=== PATIENT | female | born 1975 | race American Indian/Alaskan Native ===

== ENCOUNTER 2017-06-14 15:03 | Emergency (ER) | payer MEDICAID ==
[2017-06-14 17:09] VITALS: BP 133/89
[2017-06-14] MEDS ORDERED: TYLENOL PO ONE (17:11)
[2017-06-14] MEDS ORDERED: TYLENOL ONE (17:12)
== END 2017-06-14 19:48 ==
LOC: ED 15:03
DX: R11.2 Nausea with vomiting, unspecified (principal); Z53.21 Procedure and treatment not carried out due to patient leaving prior to being seen by health care provider

== ENCOUNTER 2017-10-09 23:03 | Emergency (ER) | payer MEDICAID ==
[2017-10-09 23:13] VITALS: BP 135/77
[2017-10-10 00:03] LABS: Basophils # (Auto) 0.1 K/mm3 (0.0-0.1); Basophils % (Auto) 1.1 % (0.0-1.8); Eosinophils # (Auto) 0.1 K/mm3 (0.0-0.4); Eosinophils % (Auto) 1.7 % (0.0-4.3); Hematocrit 39.3 % (30.3-42.9); Hemoglobin 13.7 gm/dl (10.1-14.3); Lymphocytes # (Auto) 2.4 K/mm3 (1.2-5.4); Lymphocytes % (Auto) 47.1 % (13.4-35.0); Mean Corpuscular HGB Conc 35 % (30-34); Mean Corpuscular Hemoglobin 32 pg (28-32); Mean Corpuscular Volume 92 fl (79-97); Monocytes # (Auto) 0.3 K/mm3 (0.0-0.8); Monocytes % (Auto) 5.8 % (0.0-7.3); Platelet Count 251 K/mm3 (140-440); Red Blood Count 4.28 M/mm3 (3.65-5.03)
[2017-10-10 00:16] LABS: Alanine Aminotransferase 10 units/L (7-56); Albumin 4.8 g/dL (3.9-5); BUN/Creatinine Ratio 13; Blood Urea Nitrogen 8 mg/dL (7-17); Calcium 9.4 mg/dL (8.4-10.2); Hemolysis Index 3
[2017-10-10 03:11] LABS: Bacteria,Urine 1+ /HPF (Negative); Bilirubin,Urine NEG (Negative); Blood,Urine MOD (Negative); Color,Urine Yellow (Yellow); Mucus,Urine FEW /HPF; Protein,Urine <15 mg/dL mg/dL (Negative)
--- NOTE | 2017-10-10 03:51 | Emergency Department Report ---
ED Female HPI - General Chief complaint: Vaginal Bleeding Stated complaint: VAGINAL BLEEDING Time Seen by Provider: 10/10/17 03:18 Source: patient Mode of arrival: Ambulatory Limitations: No Limitations - History of Present Illness Initial comments: 40 year old female with a past medical history of sickle cell trait, anemia presents to the hospital complaining of irregular menstrual bleeding for several months. Currently patient is using 4 pads per day. He complains of a stabbing pain to her suprapubic area feels like the uterus is falling out. She was seen at [facility] ER September 13 for the same and had ultrasound performed. She was diagnosed with left ovarian cyst. She has followed for her [employer]PUTER [employer] doctor and is scheduled for repeat outpatient ultrasound. This has been postponed until patient's bleeding has stopped because she was told the center that vag bleeding will interfere with the study. Patient is not currently on any control. She complains of some mild lightheadedness. She is frustrated because she cannot be sexually intimate with her because of the persistent bleeding. She is also having pain that is interfering with her work. She is prescribed hydrocodone and Motrin 800 mg. She cannot take hydrocodone while she is working so she's been doubling up on her Motrin 800 mg. She is currently taking multivitamins with iron. Denies dysuria. Patient has also recently completed a course of clindamycin and Macrobid prescribed during her recent visits to the hospital and clinic - Related Data Previous Rx's Medication Instructions Recorded Last Taken Type Ibuprofen [Motrin] 400 mg PO Q8H PRN #60 tablet 05/16/15 Unknown Rx Ondansetron [Zofran Odt] 4 mg PO Q6H PRN #14 tab.rapdis 05/16/15 Unknown Rx Sulfamethoxazole/Trimethoprim 1 each PO BID #14 tablet 05/16/15 Unknown Rx [Bactrim DS TAB] traMADol [Ultram] 50 mg PO Q6HR PRN #14 tablet 05/16/15 Unknown Rx Allergies Allergy/AdvReac Type Severity Reaction Status Date / Time No Known Allergies Allergy Verified 01/17/15 18:49 ED Review of Systems ROS: Stated complaint: VAGINAL BLEEDING Other details as noted in HPI Comment: All other systems reviewed and negative ED Past Medical Hx - Past Medical History Previous Medical History?: Yes Additional medical history: sickle cell trait, anemia - Surgical History Past Surgical History?: No - Social History Smoking Status: Current Every Day Smoker Substance Use Type: None - Medications Home Medications: Home Medications Medication Instructions Recorded Confirmed Last Taken Type Ibuprofen [Motrin] 400 mg PO Q8H PRN #60 tablet 05/16/15 Unknown Rx Ondansetron [Zofran Odt] 4 mg PO Q6H PRN #14 tab.rapdis 05/16/15 Unknown Rx Sulfamethoxazole/Trimethoprim 1 each PO BID #14 tablet 05/16/15 Unknown Rx [Bactrim DS TAB] traMADol [Ultram] 50 mg PO Q6HR PRN #14 tablet 05/16/15 Unknown Rx ED Physical Exam - General Limitations: No Limitations - Other Other exam information: General: No limitations, patient is alert in no acute distress Head exam: Atraumatic, normocephalic Eyes exam: Normal appearance, pupils equal reactive to light, extraocular movements intact ENT: Moist mucous membrane, normal oropharynx Neck exam: Normal inspection, full range of motion, no meningismus nontender Respiratory exam: Clear to auscultation bilateral, no wheezes, rales, crackles Cardiovascular: Normal rate and rhythm, normal heart sounds Abdomen: Soft, nondistended, and nontender, with normal bowel sounds, no rebound, or guarding Extremity: Full range of motion normal inspection no deformity Back: Normal Inspection, full range of motion, no tenderness Neurologic: Alert, oriented x3, cranial nerves intact, no motor or sensory deficit Psychiatric: normal affect, normal mood Skin: Warm, dry, intact ED Course Vital Signs 10/09/17 23:05 Temperature 98.6 F Pulse Rate 66 Respiratory 18 Rate Blood Pressure 135/77 O2 Sat by Pulse 100 Oximetry ED Medical Decision Making - Lab Data Result diagrams: 10/09/17 23:36 10/09/17 23:36 Lab Results 10/09/17 10/09/17 10/09/17 Range/Units 23:36 23:36 23:36 WBC 5.1 (4.5-11.0) K/mm3 RBC 4.28 (3.65-5.03) M/mm3 Hgb 13.7 (10.1-14.3) gm/dl Hct 39.3 (30.3-42.9) % MCV 92 (79-97) fl MCH 32 (28-32) pg MCHC 35 H (30-34) % RDW 13.0 L (13.2-15.2) % Plt Count 251 (140-440) K/mm3 Lymph % (Auto) 47.1 H (13.4-35.0) % [place] % (Auto) 5.8 (0.0-7.3) % Eos % (Auto) 1.7 (0.0-4.3) % Baso % (Auto) 1.1 (0.0-1.8) % Lymph # 2.4 (1.2-5.4) K/mm3 [place] # 0.3 (0.0-0.8) K/mm3 Eos # 0.1 (0.0-0.4) K/mm3 Baso # 0.1 (0.0-0.1) K/mm3 Seg Neutrophils % 44.3 (40.0-70.0) % Seg Neutrophils # 2.3 (1.8-7.7) K/mm3 Sodium 141 (137-145) mmol/L Potassium 3.6 (3.6-5.0) mmol/L Chloride 100.3 (98-107) mmol/L Carbon Dioxide 28 (22-30) mmol/L Anion Gap 16 mmol/L BUN 8 (7-17) mg/dL Creatinine 0.6 L (0.7-1.2) mg/dL Estimated GFR > 60 ml/min BUN/Creatinine Ratio 13 % Glucose 84 (65-100) mg/dL Calcium 9.4 (8.4-10.2) mg/dL Total Bilirubin 0.50 (0.1-1.2) mg/dL AST 18 (5-40) units/L ALT 10 (7-56) units/L Alkaline Phosphatase 69 (35-129) units/L Total Protein 8.0 (6.3-8.2) g/dL Albumin 4.8 (3.9-5) g/dL Albumin/Globulin Ratio 1.5 % HCG, Quant < 2 (0-4) mIU/mL Urine Color (Yellow) Urine Turbidity (Clear) Urine pH (5.0-7.0) Ur Specific [place] (1.003-1.030) Urine Protein (Negative) mg/dL Urine Glucose (UA) (Negative) mg/dL Urine Ketones (Negative) mg/dL Urine Blood (Negative) Urine Nitrite (Negative) Urine Bilirubin (Negative) Urine Urobilinogen (<2.0) mg/dL Ur Leukocyte Esterase (Negative) Urine WBC (Auto) (0.0-6.0) /HPF Urine RBC (Auto) (0.0-6.0) /HPF U Epithel Cells (Auto) (0-13.0) /HPF Urine Bacteria (Auto) (Negative) /HPF Urine Mucus /HPF Blood Type Antibody Screen 10/09/17 10/10/17 Range/Units 23:36 02:36 WBC (4.5-11.0) K/mm3 RBC (3.65-5.03) M/mm3 Hgb (10.1-14.3) gm/dl Hct (30.3-42.9) % MCV (79-97) fl MCH (28-32) pg MCHC (30-34) % RDW (13.2-15.2) % Plt Count (140-440) K/mm3 Lymph % (Auto) (13.4-35.0) % [place] % (Auto) (0.0-7.3) % Eos % (Auto) (0.0-4.3) % Baso % (Auto) (0.0-1.8) % Lymph # (1.2-5.4) K/mm3 [place] # (0.0-0.8) K/mm3 Eos # (0.0-0.4) K/mm3 Baso # (0.0-0.1) K/mm3 Seg Neutrophils % (40.0-70.0) % Seg Neutrophils # (1.8-7.7) K/mm3 Sodium (137-145) mmol/L Potassium (3.6-5.0) mmol/L Chloride (98-107) mmol/L Carbon Dioxide (22-30) mmol/L Anion Gap mmol/L BUN (7-17) mg/dL Creatinine (0.7-1.2) mg/dL Estimated GFR ml/min BUN/Creatinine Ratio % Glucose (65-100) mg/dL Calcium (8.4-10.2) mg/dL Total Bilirubin (0.1-1.2) mg/dL AST (5-40) units/L ALT (7-56) units/L Alkaline Phosphatase (35-129) units/L Total Protein (6.3-8.2) g/dL Albumin (3.9-5) g/dL Albumin/Globulin Ratio % HCG, Quant (0-4) mIU/mL Urine Color Yellow (Yellow) Urine Turbidity Clear (Clear) Urine pH 5.0 (5.0-7.0) Ur Specific [place] 1.019 (1.003-1.030) Urine Protein <15 mg/dl (Negative) mg/dL Urine Glucose (UA) Neg (Negative) mg/dL Urine Ketones Neg (Negative) mg/dL Urine Blood Mod (Negative) Urine Nitrite Neg (Negative) Urine Bilirubin Neg (Negative) Urine Urobilinogen 2.0 (<2.0) mg/dL Ur Leukocyte Esterase Mod (Negative) Urine WBC (Auto) 13.0 H (0.0-6.0) /HPF Urine RBC (Auto) 18.0 (0.0-6.0) /HPF U Epithel Cells (Auto) 2.0 (0-13.0) /HPF Urine Bacteria (Auto) 1+ (Negative) /HPF Urine Mucus Few /HPF Blood Type O POSITIVE Antibody Screen Negative - Medical Decision Making Patient has ongoing uterine bleeding abnormalities. Currently using 4 pads per day. H&H vital signs stable. Patient has a [employer]PUTER [employer]TER doctor in outpatient plan. She is reassured to continue with her follow-up And continue her current medications. She was advised by her [employer]PUTER [employer] doctor that -control pills may not be the best treatment that she is a smoker. I offered patient Provera but informed her the same risk of blood clots while taking the medication. Patient will continue her follow up - Differential Diagnosis fibroids, premenopausal, uterine cancer, anemia, Critical Care Time: No Critical care attestation.: If time is entered above; I have spent that time in minutes in the direct care of this critically ill patient, excluding procedure time. ED Disposition Clinical Impression: DUB (dysfunctional uterine bleeding) Disposition: - TO HOME OR SELFCARE Is pt being admited?: No Does the pt Need Aspirin: No Condition: Stable Instructions: Dysfunctional Uterine Bleeding (ED) Additional Instructions: Continue your multivitamins with iron. Continue your hydrocodone and Motrin as needed for pain. Continue your follow-up with your COMPUTER [employer] doctor. Return if symptoms worsen as indicated by your discharge instructions. Referrals: CYNTHIA JEAN-BAPTISTE MD [Primary Care Provider] - 3-5 Days Time of Disposition: 03:50
== END 2017-10-10 04:12 | disposition home or self-care (01) ==
LOC: ED 23:03
DX: N93.8 Other specified abnormal uterine and vaginal bleeding (principal); F17.200 Nicotine dependence, unspecified, uncomplicated; D57.3 Sickle-cell trait
CPT/HCPCS: 36415; 80053; 81001; 84702; 85025; 86850; 86900; 86901; 99283

== ENCOUNTER 2018-08-26 23:51 | Emergency (ER) | payer SELFPAY | END 2018-08-27 01:15 | LOC: ED 23:51 | DX: R10.9 Unspecified abdominal pain (principal); Z53.21 Procedure and treatment not carried out due to patient leaving prior to being seen by health care provider ==

== ENCOUNTER 2018-12-26 23:22 | Emergency (ER) | payer SELFPAY ==
[2018-12-27] MEDS ORDERED: TYLENOL PO ONE (01:41)
[2018-12-27 02:47] LABS: Basophils # (Auto) 0.1 K/mm3 (0.0-0.1); Eosinophils # (Auto) 0.1 K/mm3 (0.0-0.4); Eosinophils % (Auto) 1.7 % (0.0-4.3); Hematocrit 34.9 % (30.3-42.9); Hemoglobin 12.3 gm/dl (10.1-14.3); Lymphocytes % (Auto) 47.5 % (13.4-35.0); Mean Corpuscular HGB Conc 35 % (30-34); Mean Corpuscular Volume 93 fl (79-97); Monocytes # (Auto) 0.3 K/mm3 (0.0-0.8); Monocytes % (Auto) 4.6 % (0.0-7.3); Platelet Count 233 K/mm3 (140-440); Red Blood Count 3.77 M/mm3 (3.65-5.03); Red Cell Distribution Width 12.8 % (13.2-15.2)
[2018-12-27 02:52] LABS: Bilirubin,Urine NEG (Negative); Blood,Urine MOD (Negative); Color,Urine Yellow (Yellow); Mucus,Urine FEW /HPF; Protein,Urine <15 mg/dL mg/dL (Negative); Urobilinogen,Urine < 2.0 mg/dL (<2.0)
[2018-12-27 03:10] LABS: Alanine Aminotransferase 15 units/L (7-56); Albumin 4.2 g/dL (3.9-5); BUN/Creatinine Ratio 13; Blood Urea Nitrogen 8 mg/dL (7-17); Calcium 9.1 mg/dL (8.4-10.2); Hemolysis Index 19
--- NOTE | 2018-12-27 04:45 | Emergency Department Report ---
ED Female HPI - General Chief complaint: Abdominal Pain Stated complaint: ABDOMINAL PAIN, DISCHARGE, HEADACHE Time Seen by Provider: 12/27/18 04:40 Source: patient Mode of arrival: Ambulatory Limitations: No Limitations - History of Present Illness Initial comments: pt is a 43 y/o aaf who presents for vaginal discharge x 1 week , discharge is white thick malodorous, no fever no chills no n/v no back pain, pt no concern for STI, martin hx of Fibroids. MD Complaint: vaginal discharge Onset/Timin -: week(s) Radiation: non-radiating Severity: moderate Severity scale (0 -10): 4 Quality: other (itching ) Consistency: constant Improves with: none Worsens with: none Are you Now?: No Last Menstrual Period: 11/24/18 EDC: 08/31/19 Associated Symptoms: vaginal discharge - Related Data Sexually active: Yes : 2 Para: 2 A: 0 Previous Rx's Medication Instructions Recorded Last Taken Type Ibuprofen [Motrin] 400 mg PO Q8H PRN #60 tablet 05/16/15 Unknown Rx Ondansetron [Zofran Odt] 4 mg PO Q6H PRN #14 tab.rapdis 05/16/15 Unknown Rx Sulfamethoxazole/Trimethoprim 1 each PO BID #14 tablet 05/16/15 Unknown Rx [Bactrim DS TAB] traMADol [Ultram] 50 mg PO Q6HR PRN #14 tablet 05/16/15 Unknown Rx Ibuprofen [Motrin] 400 mg PO Q8H #30 tablet 03/30/18 Unknown Rx traMADol [Ultram 50 MG tab] 50 mg PO Q6HR PRN #13 tablet 03/30/18 Unknown Rx metroNIDAZOLE [Flagyl] 500 mg PO Q12HR 10 Days #20 tab 12/27/18 Unknown Rx Allergies Allergy/AdvReac Type Severity Reaction Status Date / Time No Known Allergies Allergy Verified 03/30/18 10:17 ED Review of Systems ROS: Stated complaint: ABDOMINAL PAIN, DISCHARGE, HEADACHE Other details as noted in HPI Constitutional: denies: chills, fever Eyes: denies: eye pain, eye discharge, vision change ENT: denies: ear pain, throat pain Respiratory: denies: cough, shortness of breath, wheezing Cardiovascular: denies: chest pain, palpitations Endocrine: no symptoms reported Gastrointestinal: denies: abdominal pain, nausea, diarrhea Genitourinary: discharge, abnormal menses. denies: urgency, dysuria, frequency, hematuria Musculoskeletal: denies: back pain, joint swelling, arthralgia Skin: denies: rash, lesions Neurological: denies: headache, weakness, paresthesias Psychiatric: denies: anxiety, depression Hematological/Lymphatic: denies: easy bleeding, easy bruising ED Past Medical Hx - Past Medical History Previous Medical History?: Yes Additional medical history: sickle cell trait, anemia - Surgical History Past Surgical History?: No - Social History Smoking Status: Current Every Day Smoker Substance Use Type: None - Medications Home Medications: Home Medications Medication Instructions Recorded Confirmed Last Taken Type Ibuprofen [Motrin] 400 mg PO Q8H PRN #60 tablet 05/16/15 Unknown Rx Ondansetron [Zofran Odt] 4 mg PO Q6H PRN #14 tab.rapdis 05/16/15 Unknown Rx Sulfamethoxazole/Trimethoprim 1 each PO BID #14 tablet 05/16/15 Unknown Rx [Bactrim DS TAB] traMADol [Ultram] 50 mg PO Q6HR PRN #14 tablet 05/16/15 Unknown Rx Ibuprofen [Motrin] 400 mg PO Q8H #30 tablet 03/30/18 Unknown Rx traMADol [Ultram 50 MG tab] 50 mg PO Q6HR PRN #13 tablet 03/30/18 Unknown Rx metroNIDAZOLE [Flagyl] 500 mg PO Q12HR 10 Days #20 tab 12/27/18 Unknown Rx ED Physical Exam - General Limitations: No Limitations General appearance: alert, in no apparent distress - Head Head exam: Present: atraumatic, normocephalic - Eye Eye exam: Present: normal appearance, PERRL, EOMI Pupils: Present: normal accommodation - ENT ENT exam: Present: mucous membranes moist - Neck Neck exam: Present: normal inspection - Respiratory Respiratory exam: Present: normal lung sounds bilaterally, chest wall tenderness. Absent: respiratory distress, wheezes, stridor - Cardiovascular Cardiovascular Exam: Present: regular rate, normal rhythm, normal heart sounds. Absent: systolic murmur, diastolic murmur, rubs, gallop - GI/Abdominal GI/Abdominal exam: Present: soft, normal bowel sounds. Absent: distended, tenderness, guarding, rebound, rigid, bruit, hernia - Rectal Rectal exam: Present: deferred - External exam: Present: normal external exam. Absent: erythema, swelling, lesions, lacerations, ecchymosis, bleeding Speculum exam: Present: vaginal discharge (white thick malodorous ). Absent: erythema, cervical discharge, vaginal bleeding, foreign body, tissue, laceration Bi-manual exam: Absent: cervical motion tendernes - Extremities Exam Extremities exam: Present: normal inspection, full ROM, normal capillary refill. Absent: tenderness - Back Exam Back exam: Present: normal inspection - Neurological Exam Neurological exam: Present: alert, oriented X3, CN II-XII intact, normal gait, reflexes normal - Psychiatric Psychiatric exam: Present: normal affect, normal mood - Skin Skin exam: Present: warm, dry, intact, normal color. Absent: rash ED Course Vital Signs 12/27/18 01:43 Temperature 98.8 F Pulse Rate 76 Respiratory 16 Rate Blood Pressure 112/73 O2 Sat by Pulse 99 Oximetry ED Medical Decision Making - Lab Data Result diagrams: 12/27/18 02:20 12/27/18 02:20 Critical care attestation.: If time is entered above; I have spent that time in minutes in the direct care of this critically ill patient, excluding procedure time. ED Disposition Clinical Impression: Bacterial vaginosis Disposition: DC-01 TO HOME OR SELFCARE Is pt being admited?: No Does the pt Need Aspirin: No Condition: Stable Instructions: Bacterial Vaginosis (ED) Prescriptions: metroNIDAZOLE [Flagyl] 500 mg PO Q12HR 10 Days #20 tab Referrals: GUSTAVO CORNEJO MD [Staff Physician] - 3-5 Days Forms: Work/School Release Form(ED) Time of Disposition: 04:48
[2018-12-27 05:06] VITALS: BP 114/73
== END 2018-12-27 05:05 | disposition home or self-care (01) ==
LOC: ED 23:22
DX: N76.0 Acute vaginitis (principal); B96.89 Other specified bacterial agents as the cause of diseases classified elsewhere
CPT/HCPCS: 36415; 80053; 81001; 85025; 87591

== ENCOUNTER 2020-05-25 05:33 | Emergency (ER) | payer SELFPAY ==
[2020-05-25 06:37] VITALS: BP 135/85
[2020-05-25] MEDS ORDERED: IPRATROPIUM/ALBUTEROL SULFATE 3 ML AMPUL.NEB IH ONE (08:10)
--- NOTE | 2020-05-25 12:12 | Emergency Department Report ---
ED General Adult HPI - General Chief complaint: Skin/Abscess/Foreign Body Stated complaint: BOIL Time Seen by Provider: 05/25/20 11:49 Source: patient Mode of arrival: Ambulatory Limitations: No Limitations - History of Present Illness Initial comments: 45-year-old -Nepalese female patient presents with complaints of boil to the left labia x2 months, now painful and swollen for the past few days. She denies any fever/chills/sweats. She rates her pain as a 10/10 in severity. No prior history of Bartholin's abscess/cyst per patient. She also states she has a cyst on her left upper back that is nonpainful has been there for 6 months Severity scale (0 -10): 8 - Related Data Previous Rx's Medication Instructions Recorded Last Taken Type Ibuprofen [Motrin] 400 mg PO Q8H PRN #60 tablet 05/16/15 Unknown Rx Ondansetron [Zofran Odt] 4 mg PO Q6H PRN #14 tab.rapdis 05/16/15 Unknown Rx Sulfamethoxazole/Trimethoprim 1 each PO BID #14 tablet 05/16/15 Unknown Rx [Bactrim DS TAB] traMADoL [Ultram] 50 mg PO Q6HR PRN #14 tablet 05/16/15 Unknown Rx Ibuprofen [Motrin] 400 mg PO Q8H #30 tablet 03/30/18 Unknown Rx traMADoL [Ultram 50 MG tab] 50 mg PO Q6HR PRN #13 tablet 03/30/18 Unknown Rx metroNIDAZOLE [Flagyl] 500 mg PO Q12HR 10 Days #20 tab 12/27/18 Unknown Rx Acetaminophen/Codeine [Tylenol 1 tab PO Q6H PRN #12 tab 05/25/20 Unknown Rx /Codeine # 3 tab] Amoxicillin/Potassium Clav 1 each PO BID 7 Days #14 tablet 05/25/20 Unknown Rx [Augmentin 875-125 Tablet] Ibuprofen [Motrin 800 MG tab] 800 mg PO Q8HR PRN #21 tablet 05/25/20 Unknown Rx Sulfamethoxazole/Trimethoprim 1 each PO BID 7 Days #14 tablet 05/25/20 Unknown Rx [Bactrim DS TAB] Allergies Allergy/AdvReac Type Severity Reaction Status Date / Time No Known Allergies Allergy Verified 03/30/18 10:17 ED Review of Systems ROS: Stated complaint: BOIL Other details as noted in HPI Constitutional: denies: chills, diaphoresis, fever, malaise, weakness Genitourinary: denies: dysuria, frequency, hematuria Skin: as per HPI, change in color. denies: rash Hematological/Lymphatic: denies: swollen glands ED Past Medical Hx - Past Medical History Previous Medical History?: Yes Additional medical history: sickle cell trait, anemia - Surgical History Past Surgical History?: No - Social History Smoking Status: Current Every Day Smoker Substance Use Type: None - Medications Home Medications: Home Medications Medication Instructions Recorded Confirmed Last Taken Type Ibuprofen [Motrin] 400 mg PO Q8H PRN #60 tablet 05/16/15 Unknown Rx Ondansetron [Zofran Odt] 4 mg PO Q6H PRN #14 tab.rapdis 05/16/15 Unknown Rx Sulfamethoxazole/Trimethoprim 1 each PO BID #14 tablet 05/16/15 Unknown Rx [Bactrim DS TAB] traMADoL [Ultram] 50 mg PO Q6HR PRN #14 tablet 05/16/15 Unknown Rx Ibuprofen [Motrin] 400 mg PO Q8H #30 tablet 03/30/18 Unknown Rx traMADoL [Ultram 50 MG tab] 50 mg PO Q6HR PRN #13 tablet 03/30/18 Unknown Rx metroNIDAZOLE [Flagyl] 500 mg PO Q12HR 10 Days #20 tab 12/27/18 Unknown Rx Acetaminophen/Codeine [Tylenol 1 tab PO Q6H PRN #12 tab 05/25/20 Unknown Rx /Codeine # 3 tab] Amoxicillin/Potassium Clav 1 each PO BID 7 Days #14 tablet 05/25/20 Unknown Rx [Augmentin 875-125 Tablet] Ibuprofen [Motrin 800 MG tab] 800 mg PO Q8HR PRN #21 tablet 05/25/20 Unknown Rx Sulfamethoxazole/Trimethoprim 1 each PO BID 7 Days #14 tablet 05/25/20 Unknown Rx [Bactrim DS TAB] ED Physical Exam - General Limitations: No Limitations General appearance: alert, in no apparent distress - Head Head exam: Present: atraumatic, normocephalic - Eye Eye exam: Present: normal appearance. Absent: scleral icterus - Neck Neck exam: Present: full ROM - Respiratory Respiratory exam: Absent: respiratory distress - Cardiovascular Cardiovascular Exam: Present: regular rate - External exam: Present: other (Left Bartholin's abscess noted with surrounding induration and swelling to the left labia) - Back Exam Back exam: Present: full ROM - Neurological Exam Neurological exam: Present: alert, oriented X3, normal gait - Psychiatric Psychiatric exam: Present: normal affect, normal mood - Skin Skin exam: Present: warm, dry, intact, other (Small 1 cm mobile sebaceous cyst noted to left shoulder without tenderness to palpation or overlying erythema or induration) ED Course Vital Signs 05/25/20 05/25/20 06:34 13:30 Temperature 98.2 F Pulse Rate 69 Respiratory 18 16 Rate Blood Pressure 135/85 [Left] O2 Sat by Pulse 100 Oximetry - I & D Vagina Type of Procedure: Simple Site: Left labia Blade Size: 11 I & D Procedure: betadine prep Progress: 4 cc of lidocaine 1% with epi used. Copious purulent drainage was obtained from wound-sample sent for wound culture. Packing placed. 0 dressing placed. Minimal bleeding occurred. Patient tolerated procedure well without any immediate complications. ED Medical Decision Making - Medical Decision Making 45-year-old -N[place]alese female patient presents with complaints of boil to the left labia x2 months, now painful and swollen for the past few days. She denies any fever/chills/sweats. She rates her pain as a 10/10 in severity. No prior history of Bartholin's abscess/cyst per patient. She also states she has a cyst on her left upper back that is nonpainful has been there for 6 months And drainage performed. Patient tolerated procedure well without any immediate complications. Prescriptions for Bactrim and Augmentin given. Discussed wound care and need for return to the emergency department in 2 days for packing removal. Patient also to follow-up with GASTROENTEROLOGY NURSE in 5 days. Strict return precautions were discussed in great detail with patient who verbalizes understanding peer Critical care attestation.: If time is entered above; I have spent that time in minutes in the direct care of this critically ill patient, excluding procedure time. ED Disposition Clinical Impression: Bartholin's gland abscess, Sebaceous cyst Disposition: TO HOME OR SELFCARE Is pt being admited?: No Condition: Stable Instructions: Epidermal Cyst Removal, Incision and Drainage, Bartholin's Cyst Prescriptions: Amoxicillin/Potassium Clav [Augmentin 875-125 Tablet] 1 each PO BID 7 Days #14 tablet Sulfamethoxazole/Trimethoprim [Bactrim DS TAB] 1 each PO BID 7 Days #14 tablet Ibuprofen [Motrin 800 MG tab] 800 mg PO Q8HR PRN #21 tablet PRN Reason: pain Acetaminophen/Codeine [Tylenol /Codeine # 3 tab] 1 tab PO Q6H PRN #12 tab PRN Reason: Pain , Severe (7-10) Referrals: [facility] [Provider Group] - 3-5 Days Forms: Work/School Release Form(ED)
[2020-05-25] MEDS ORDERED: BUPIVACAINE/PF (0.25%) 2.5 MG/ML 30 ML VIAL INFILTRATI ONE (12:27)
[2020-05-25] MEDS ORDERED: ONDANSETRON 4 MG ODT TAB PO ONE (12:27)
[2020-05-25] MEDS ORDERED: oxyCODONE /ACETAMINOPHEN 5-325MG TAB PO ONE (12:27)
[2020-05-25] MEDS ORDERED: LIDOCAINE 1%/EPINEPHRINE 1:100,000 VIAL (20 ML) INFILTRATI NR (12:30)
== END 2020-05-25 15:08 | disposition home or self-care (01) ==
LOC: ED 05:33
DX: N75.1 Abscess of Bartholin's gland (principal); L72.3 Sebaceous cyst; F17.200 Nicotine dependence, unspecified, uncomplicated; Z79.899 Other long term (current) drug therapy
CPT/HCPCS: 87116; 99283; Q0162

== ENCOUNTER 2020-12-20 17:06 | Emergency (ER) | payer SELFPAY ==
[2020-12-20 18:19] VITALS: BP 131/84
== END 2020-12-20 18:20 | disposition left against medical advice (07) ==
LOC: ED 17:06
DX: R10.9 Unspecified abdominal pain (principal); Z53.21 Procedure and treatment not carried out due to patient leaving prior to being seen by health care provider

== ENCOUNTER 2021-02-11 09:18 | Emergency (ER) | payer SELFPAY ==
[2021-02-11 10:07] VITALS: BP 155/95
--- NOTE | 2021-02-11 10:36 | Emergency Department Report ---
- General Chief Complaint: Upper Respiratory Infection Stated Complaint: LOSS OF APPETITE, COLD SWEAT, BODY ACHES N/V PUI?: Yes Time Seen by Provider: 02/11/21 10:33 Source: patient Mode of arrival: Ambulatory Limitations: No Limitations - History of Present Illness Initial Comments: Patient presented with a 3-day history of GI symptoms. She states that she went out for her birthday last week. Subsequent to that, she did not feel well. She has had nausea and vomiting. She is a GI upset. She reports having muscle aches and body aches. Patient states that she just cannot taste anything anymore. There really has not been a cough or congestion although she had presented with respiratory complaints. She has had no shortness of breath. There is no chest pain. Patient has had no known coronavirus exposure. She was concerned because she was not vaccinated. She states that her is diabetic and he has been vaccinated. They do live together and she is concerned that she could expose him to coronavirus if that is what she has. Again, she has been sick for 2 to 3 days. She came in because she was very scared. She has not had hematemesis or coffee-ground emesis. There is no melenic stool. There is no history of recent travel or trauma. - Related Data Previous Rx's Medication Instructions Recorded Last Taken Type Ibuprofen [Motrin] 400 mg PO Q8H PRN #60 tablet 05/16/15 Unknown Rx Ondansetron [Zofran Odt] 4 mg PO Q6H PRN #14 tab.rapdis 05/16/15 Unknown Rx Sulfamethoxazole/Trimethoprim 1 each PO BID #14 tablet 05/16/15 Unknown Rx [Bactrim DS TAB] traMADoL [Ultram] 50 mg PO Q6HR PRN #14 tablet 05/16/15 Unknown Rx Ibuprofen [Motrin] 400 mg PO Q8H #30 tablet 03/30/18 Unknown Rx traMADoL [Ultram 50 MG tab] 50 mg PO Q6HR PRN #13 tablet 03/30/18 Unknown Rx metroNIDAZOLE [Flagyl] 500 mg PO Q12HR 10 Days #20 tab 12/27/18 Unknown Rx Acetaminophen/Codeine [Tylenol 1 tab PO Q6H PRN #12 tab 05/25/20 Unknown Rx /Codeine # 3 tab] Amoxicillin/Potassium Clav 1 each PO BID 7 Days #14 tablet 05/25/20 Unknown Rx [Augmentin 875-125 Tablet] Ibuprofen [Motrin 800 MG tab] 800 mg PO Q8HR PRN #21 tablet 05/25/20 Unknown Rx Sulfamethoxazole/Trimethoprim 1 each PO BID 7 Days #14 tablet 05/25/20 Unknown Rx [Bactrim DS TAB] Ondansetron [Zofran Odt] 4 mg PO Q8HR #20 tab.rapdis 02/11/21 Unknown Rx Allergies Allergy/AdvReac Type Severity Reaction Status Date / Time No Known Allergies Allergy Verified 03/30/18 10:17 ED Review of Systems ROS: Stated complaint: LOSS OF APPETITE, COLD SWEAT, BODY ACHES N/V Other details as noted in HPI Comment: All other systems reviewed and negative Constitutional: no symptoms reported, fever Eyes: denies: eye discharge ENT: denies: throat pain Respiratory: denies: cough Cardiovascular: denies: chest pain Endocrine: denies: unexplained weight loss Gastrointestinal: as per HPI. denies: abdominal pain Genitourinary: denies: dysuria Musculoskeletal: denies: back pain Skin: denies: rash Neurological: denies: headache Hematological/Lymphatic: denies: easy bruising ED Past Medical Hx - Past Medical History Previous Medical History?: Yes Additional medical history: sickle cell trait, anemia - Surgical History Past Surgical History?: Yes Additional Surgical History: TL - Family History Family history: diabetes - Social History Smoking Status: Current Every Day Smoker Substance Use Type: None Other Social History: We discussed smoking cessation x3 minutes. - Medications Home Medications: Home Medications Medication Instructions Recorded Confirmed Last Taken Type Ibuprofen [Motrin] 400 mg PO Q8H PRN #60 tablet 05/16/15 Unknown Rx Ondansetron [Zofran Odt] 4 mg PO Q6H PRN #14 tab.rapdis 05/16/15 Unknown Rx Sulfamethoxazole/Trimethoprim 1 each PO BID #14 tablet 05/16/15 Unknown Rx [Bactrim DS TAB] traMADoL [Ultram] 50 mg PO Q6HR PRN #14 tablet 05/16/15 Unknown Rx Ibuprofen [Motrin] 400 mg PO Q8H #30 tablet 03/30/18 Unknown Rx traMADoL [Ultram 50 MG tab] 50 mg PO Q6HR PRN #13 tablet 03/30/18 Unknown Rx metroNIDAZOLE [Flagyl] 500 mg PO Q12HR 10 Days #20 tab 12/27/18 Unknown Rx Acetaminophen/Codeine [Tylenol 1 tab PO Q6H PRN #12 tab 05/25/20 Unknown Rx /Codeine # 3 tab] Amoxicillin/Potassium Clav 1 each PO BID 7 Days #14 tablet 05/25/20 Unknown Rx [Augmentin 875-125 Tablet] Ibuprofen [Motrin 800 MG tab] 800 mg PO Q8HR PRN #21 tablet 05/25/20 Unknown Rx Sulfamethoxazole/Trimethoprim 1 each PO BID 7 Days #14 tablet 05/25/20 Unknown Rx [Bactrim DS TAB] Ondansetron [Zofran Odt] 4 mg PO Q8HR #20 tab.rapdis 02/11/21 Unknown Rx ED Physical Exam - General Limitations: No Limitations General appearance: alert, in no apparent distress - Head Head exam: Present: atraumatic, normocephalic - Eye Eye exam: Present: normal appearance, EOMI. Absent: scleral icterus - ENT ENT exam: Present: normal exam, normal orophraynx, mucous membranes moist - Neck Neck exam: Present: normal inspection, full ROM. Absent: meningismus - Respiratory Respiratory exam: Present: normal lung sounds bilaterally. Absent: respiratory distress - Cardiovascular Cardiovascular Exam: Present: regular rate, normal rhythm - GI/Abdominal GI/Abdominal exam: Present: soft. Absent: tenderness, guarding - Extremities Exam Extremities exam: Present: normal capillary refill. Absent: pedal edema - Back Exam Back exam: Absent: CVA tenderness (R), CVA tenderness (L) - Neurological Exam Neurological exam: Present: alert, oriented X3, normal gait. Absent: motor sensory deficit - Psychiatric Psychiatric exam: Present: normal affect, other (Tearful) - Skin Skin exam: Present: warm, dry ED Course Vital Signs 02/11/21 10:03 Temperature 99.3 F Pulse Rate 87 Respiratory 16 Rate Blood Pressure 155/95 [Left] O2 Sat by Pulse 100 Oximetry - Reevaluation(s) Reevaluation #1: 02/11/21 10:45 Patient was seen as above. We discussed testing for coronavirus. She elects to go elsewhere. Patient was subsequently discharged. ED Medical Decision Making - Medical Decision Making Patient presented with GI symptoms and concern for coronavirus infection. We discussed testing. We have discussed isolation and quarantine. Patient has decided that she will go elsewhere for testing. Patient does not have any abdominal tenderness. There is no peritoneal finding. She does not have symptoms that are concerning for hepatitis or pancreatitis. She is not jaundiced. There was no right upper quadrant tenderness to suggest biliary colic. She has no urinary symptoms or CVA tenderness with suggest pyelonephritis. She has no evidence of airway compromise. She certainly could have coronavirus, but she does not appear to be in any respiratory distress and is not hypoxic. She would not require admission or further evaluation. Critical Care Time: No Critical care attestation.: If time is entered above; I have spent that time in minutes in the direct care of this critically ill patient, excluding procedure time. ED Disposition Clinical Impression: Myalgia Nausea & vomiting Qualifiers: Vomiting type: unspecified Vomiting Intractability: non-intractable Qualified Code(s): R11.2 - Nausea with vomiting, unspecified Disposition: 01 HOME / SELF CARE / HOMELESS Is pt being admited?: No Does the pt Need Aspirin: No Condition: Stable Instructions: Nausea and Vomiting, Adult Additional Instructions: Consider coronavirus testing at an outpatient facility. Drink plenty of water. Have a bland diet. Return for problems. Follow-up with your regular doctor for recheck and further evaluation. Prescriptions: Ondansetron [Zofran Odt] 4 mg PO Q8HR #20 tab.rapdis Referrals: PRIMARY CARE, [Primary Care Provider] - 3-5 Days
== END 2021-02-11 11:14 | disposition home or self-care (01) ==
LOC: ED 09:18
DX: M79.10 Myalgia, unspecified site (principal); R11.2 Nausea with vomiting, unspecified; D57.3 Sickle-cell trait; D64.9 Anemia, unspecified; Z98.890 Other specified postprocedural states; F17.200 Nicotine dependence, unspecified, uncomplicated
CPT/HCPCS: 99281

== ENCOUNTER 2021-06-27 14:29 | Emergency (ER) | payer SELFPAY ==
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
[2021-06-27 16:03] VITALS: BP 136/83
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
== END 2021-06-27 16:10 | disposition home or self-care (01) ==
LOC: ED 14:29
DX: R07.89 Other chest pain (principal); V49.40XA Driver injured in collision with unspecified motor vehicles in traffic accident, initial encounter; Y93.89 Activity, other specified; Y92.89 Other specified places as the place of occurrence of the external cause; Y99.8 Other external cause status
CPT/HCPCS: 71046; 99283